=== PATIENT | male | born 1955 | race Caucasian/White ===

== ENCOUNTER → 2020-02-07 08:56 | Outpatient (CLI) | payer BC, SELFPAY ==
--- NOTE | ~2020-02-07 | XR_ITS ---
EXAMINATION: XR chest 2V DATE: 02/07/2020 09:15 INDICATION: Cough TECHNIQUE: Frontal and lateral views of the chest are obtained COMPARISON: None available FINDINGS: The lungs are free of focal airspace opacities. Subsegmental atelectasis is noted in the le ft lung base. There is no pleural effusion or pneumothorax. The cardiomediastinal silhouette is carleen l. There is mild thoracic spondylosis. IMPRESSION: 1. No acute cardiopulmonary abnormality. Reviewed, dictated and finalized at location A.
== END ==
PROVIDERS: PCP Family Medicine; Visit Provider Family Medicine
DX: R05 Cough (principal)
CPT/HCPCS: 71046

== ENCOUNTER → 2020-06-19 09:51 | Outpatient (CLI) | payer BC, SELFPAY ==
--- NOTE | ~2020-06-19 | XR_ITS ---
EXAMINATION: XR lumbar spine 2-3V DATE: 06/19/2020 10:20 INDICATION: Low back pain TECHNIQUE: Anteroposterior and lateral views of the lumbar spine, and cone-down lateral view of the l umbosacral junction were obtained. COMPARISON: None. FINDINGS: There are 2 mm of retrolisthesis of L4 on L5. There is mild loss of intervertebral disc spa ce height at L4-5 and L5-S1. The vertebral body heights are maintained. Small degenerative osteophyte s project from the anterior endplates of multiple vertebral bodies. There is moderate facet osteoarth ritis of the lower lumbar spine. The bowel gas pattern is normal. A moderate volume of colonic stool is present. There is lumbar levocurvature. IMPRESSION: 1. Mild lumbar spondylosis without acute findings. Reviewed, dictated and finalized at location A. R GRINDER OPERATOR HELPER
== END ==
PROVIDERS: PCP Family Medicine; Visit Provider Family Medicine
DX: M47.896 Other spondylosis, lumbar region (principal)
CPT/HCPCS: 72100

== ENCOUNTER → 2020-07-06 10:08 | Outpatient (CLI) | payer BC, SELFPAY ==
--- NOTE | ~2020-07-06 | CT_ITS ---
EXAMINATION: CT pelvis wo con EXAM DATE: 07/06/2020 10:31 INDICATION: Bilateral inguinal pain. Pain started after taking Lizz tree down. TECHNIQUE: Spiral CT pelvis wo con was performed without contrast. Axial, coronal and sagittal imag es were reviewed. The dose-length product (DLP) for this examination was 635.95 mGy-cm. The exposur e was tailored according to patient size (auto mA exposure control), and iterative reconstruction ( IR) was used as additional dose reduction technique. There is no prior study for comparison. FINDINGS: There is umbilical hernia repair. Just above this repair there is small fat-containing supr aumbilical hernia just left of midline. There is mild prostatomegaly. The bladder is unremarkable. No sizable inguinal hernias. Normal appendix. The visualized bowel is unremarkable. No pelvic lymphaden opathy. Mild scattered aortoiliac arterial sclerosis. IMPRESSION: 1. Small fat-containing supra umbilical hernia. 2. Mild prostatomegaly. Reviewed, dictated and finalized at location B. RNATIONAL PROJECT ENGINEER
== END ==
PROVIDERS: PCP Physician Assistant; Visit Provider Physician Assistant
DX: K42.9 Umbilical hernia without obstruction or gangrene (principal); N40.0 Benign prostatic hyperplasia without lower urinary tract symptoms
CPT/HCPCS: 72192

== ENCOUNTER → 2020-07-12 09:55 | Outpatient (CLI) | payer BC, SELFPAY ==
--- NOTE | ~2020-07-12 | MR_ITS ---
EXAMINATION: MR lumbar spine wo con DATE: 07/12/2020 10:45 INDICATION: Acute bilateral low back pain. Weakness of both lower extremities. TECHNIQUE: Magnetic resonance imaging (MRI) of the lumbar spine was performed without intravenous con trast. Sequences included sagittal T2-weighted FSE, sagittal T2-weighted FS FSE, sagittal T1-weighted FSE, and axial T2-weighted FSE. COMPARISON: Lumbar spine radiographs 06/19/2020 FINDINGS: Bone alignment is normal. There is mild chronic anterior wedging of T12 and L1 vertebral vincent dies. There is mildly decreased disc height at L1-L2 and L4-L5. The distal spinal cord signal intensi ty is normal. The conus medullaris is at L2. The following disc levels are specifically discussed: L1-L2: The disc is mildly bulging. There is no facet joint osteoarthritis. There is mild left neural foraminal stenosis. There is no central canal stenosis. L2-L3: The disc is mildly bulging. There is mild bilateral facet joint osteoarthritis. There is mild bilateral neural foraminal stenosis. There is no central canal stenosis. L3-L4: The disc is mildly bulging. There is mild bilateral facet joint osteoarthritis. There is mild bilateral neural foraminal stenosis. There is no central canal stenosis. L4-L5: The disc is bulging and has an annular fissure. There is moderate bilateral facet joint osteoa rthritis. There is mild right and moderate left neural foraminal stenosis. There is mild central juli l stenosis. L5-S1: The disc is bulging and has an annular fissure. There is mild right and severe left facet join t osteoarthritis. There is mild bilateral neural foraminal stenosis. There is mild central canal sten osis. IMPRESSION: 1. Mild lumbar spondylosis. Reviewed, dictated and finalized at location B. INTERVIEWER IMPRESSION: 1. Mild lumbar spondylosis.
== END ==
PROVIDERS: PCP Physician Assistant; Visit Provider Physician Assistant
DX: M54.5 Low back pain (principal); R29.898 Other symptoms and signs involving the musculoskeletal system; M47.896 Other spondylosis, lumbar region
CPT/HCPCS: 72148

== ENCOUNTER 2020-07-19 09:48 | Outpatient (CLI) | payer BC, SELFPAY ==
--- NOTE | ~2020-07-19 | CT_ITS ---
EXAMINATION: CT diagnostic chest w con DATE: 07/19/2020 10:21 INDICATION: Lung nodule TECHNIQUE: Computed tomography (CT) of the chest was performed without intravenous contrast. Addition al 3D reconstructions utilizing coronal maximum intensity projection (MIP) were performed. Automated exposure control and iterative reconstruction technique were employed. The dose-length product was 71 2.23 mGy-cm. COMPARISON: None FINDINGS: 2.3 cm right lower lobe nodule with small halo of groundglass opacity. Similar appearance of a 1.5 cm nodule in the left lower lobe. Small likely calcified left lower lobe nodule anterior to the dome of the diaphragm consistent with old granulomatous disease. Small region of discoid atelectasis/scarrin g extending to one of a pair of 7 mm pleural-based nodules along the right minor fissure potentially representing intrafissural lymph nodes. Mild scattered discoid atelectasis in both lungs. No pulmonar y edema, pleural effusion or pneumothorax. Heart size is normal. No pericardial effusion. Thoracic ao rta is normal in caliber with no dissection. A few mildly prominent but still normal-sized bilateral hilar and mediastinal lymph nodes which are likely reactive. Multinodular goiter. 2.1 cm right renal cyst. Partially visualized at least 1.4 cm exophytic lesion at the interpolar region of the left kidn ey with suggestion of possible enhancement raising concern for renal cell carcinoma. Mild thoracic sp ondylosis. Chronic mild anterior wedging at T11 and T12. IMPRESSION: 1. Prominent pulmonary nodules in the bilateral lower lobes measuring 2.3 cm on the right and 1.5 cm on the left. The surrounding groundglass halo suggest pulmonary hemorrhage, classically as seen with angioinvasive aspergillosis. Differential includes other infectious etiologies, either primary lung o r septic emboli, as well as malignancy either primary or metastatic, eosinophilic pneumonia, organizi ng pneumonia and hypersensitivity pneumonitis. Consider 6-12 with short interval follow-up CT. 2. Partially visualized at least 1.4 cm left renal lesion with suggestion of enhancement raising conc billie for renal cell carcinoma but which is unable to be confirmed without noncontrast imaging. Recomme nd further evaluation with pre and postcontrast MRI or CT. Reviewed, dictated and finalized at location B. ER TANK OPERATOR IMPRESSION: 1. Prominent pulmonary nodules in the bilateral lower lobes measuring 2.3 cm on the right and 1.5 cm on the left. The surrounding groundglass halo suggest pul monary hemorrhage, classically as seen with angioinvasive aspergillosis. Differ ential includes other infectious etiologies, either primary lung or septic embo li, as well as malignancy either primary or metastatic, eosinophilic pneumonia, organizing pneumonia and hypersensitivity pneumonitis. Consider 6-12 with shor t interval follow-up CT. 2. Partially visualized at least 1.4 cm left renal lesion with suggestion of en hancement raising concern for renal cell carcinoma but which is unable to be co nfirmed without noncontrast imaging. Recommend further evaluation with pre and postcontrast MRI or CT.
[2020-07-19 10:17] LABS: Estimated Glomerular Filt Rate > 60
== END 2020-07-19 09:49 | disposition home or self-care (01) ==
PROVIDERS: PCP Physician Assistant; Visit Provider Physician Assistant
DX: R91.8 Other nonspecific abnormal finding of lung field (principal)
CPT/HCPCS: 71260; Q9967